=== PATIENT | female | born 1985 | race Caucasian/White ===

== ENCOUNTER 2017-02-26 11:22 | Outpatient (CLI) | payer MEDICAID | END 2017-02-26 11:23 | disposition EMS.NT | LOC: EMS 11:22 | PROVIDERS: ATTEND Surgery | DX: R56.9 Unspecified convulsions (principal) ==

== ENCOUNTER 2023-06-04 08:00 | Outpatient (CLI) | payer MEDICAID | END 2023-06-04 23:59 | disposition home or self-care (01) | LOC: PC 08:00 | PROVIDERS: ATTEND Nurse Practitioner Adult Health | DX: Z51.5 Encounter for palliative care (principal); L03.211 Cellulitis of face; K21.9 Gastro-esophageal reflux disease without esophagitis; Q04.3 Other reduction deformities of brain; G31.9 Degenerative disease of nervous system, unspecified; N39.498 Other specified urinary incontinence; Z93.1 Gastrostomy status; Z99.3 Dependence on wheelchair; Z79.899 Other long term (current) drug therapy; Z59.89 Other problems related to housing and economic circumstances | CPT/HCPCS: 99215; 99417 ==